=== PATIENT | female | born 1980 | race Caucasian/White ===

== ENCOUNTER 2019-08-22 11:00 | Inpatient (IN) | payer OTHER ==
[2019-08-22] MEDS ORDERED: ELECTROLYTE-148 SOLN 1,000 ML IV SCH (11:20)
[2019-08-22] MEDS ORDERED: CITRIC ACID/SODIUM CITRATE 30 ML UNIT-DOSE CUP PO ONE (11:20)
[2019-08-22 11:50] VITALS: BMI 27.9
[2019-08-22] MEDS: ELECTROLYTE-148 SOLN 1,000 ML IV SCH ×2 (11:50→22:27)
[2019-08-22] MEDS ORDERED: ELECTROLYTE-148 SOLN 500 ML IV ONE (14:26)
[2019-08-22] MEDS ORDERED: morphine SULFATE/PF 0.5 MG/ML (2cc Syringe - QUVA) ONE (14:27)
[2019-08-22] MEDS ORDERED: ePHEDrine SULFATE 50 MG/1 ML AMPULE ONE ×3 (14:28→15:23)
[2019-08-22] MEDS ORDERED: SUCCINYLCHOLINE CHLORIDE 200 MG/10 ML SYRINGE ONE (14:28)
--- NOTE | 2019-08-22 14:35 | HP ---
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: No: Alzheimer's, CVA, Dementia, Migraine, Multiple Sclerosis, Peripheral Neuropathy, Parkinson's, Seizure, Syncope, TIA, Vertigo, Other Cardiovascular: No: AFIB, Aneurysm, Aortic Insufficiency, Aortic Stenosis, CAD, CHF, Deep Vein Thrombosis, HTN, Hyperlipdemia, AK, Mitral Insufficiency, Mitral Stenosis, Murmur, Pulmonary Hypertension, Other Pulmonary: No: Asthma, Bronchitis, Cancer, COPD, O2 Dependent, Pneumonia, Previously Intubated, Pulmonary Embolus, Pulmonary Fibrosis, Sleep Apnea, Other Gastrointestinal: No: Ascites, Cancer, Constipation, Crohn's Disease, Diverticulitis, Diverticulosis, Esophageal Varices, Gastritis, GERD, GI Bleed, Hemorrhoids, Hiatal Hernia, Inflamatory Bowel Disease, Irritable Bowel Disease, Pancreatitis, Peptic Ulcer Disease, Ulcerative Colitis, Other Hepatobiliary: No: Cirrhosis, Cholelithiasis, Cholecystitis, Choledocholithiasis , Hepatitis A, Hepatitis B, Hepatitis C, Other Renal/: No: Renal Failure, Renal Inusuff, BPH, Cancer, Hematuria, Hemodialysis , Neurogenic Bladder, Renal Calculi, UTI, Other Reproductive: No: Ectopic , Endometriosis, Fibroids, PID, Polycystic Ovary Syndrome, Postmenopausal, Other ...: 5 ...Para: 3 ...Term: 3 ...: 0 ...Spon : 1 ...Induced : 0 ...Multiple Gestation: 0 ...EDC by Sono: 09/05/19 Heme/Onc: No: Anemia, B12 Deficiency, Bleeding Disorder, Cancer, Current Chemotherapy, Current Radiation Therapy, Hemochromatosis, Hypercoaguable State, Myeloproliferative Synd, Sickle Cell Disease, Sickle Cell Trait, Thrombocytopenia, Other Infectious Disease: No: AIDS, C-Diff, Herpes Zoster, HIV, MRSA, STD's, Tuberculosis, VREF, Other Psych: No: Addictions, Anxiety, Bipolar, Depression, Panic, Psychosis, Schizophrenia, Other Musculoskeletal: No: Bursitis, Chronic low back pain, Hemiparesis, Hemiplegia, Osteoarthritis, Paraplegia, Other Rheumatology: No: Fibromyalgia, Gout, Lupus, Rheumatoid Arthritis, Sarcoidosis, Vasculitis, Other ENT: No: Allergic Rhinitis, Sinusitis, Other Endocrine: No: Lonny's Disease, [place]'s Disease, Diabetes Insipidus, Diabetes Mellitus, Hyperparathyroidism, Hyperthyroidism, Hypothyroidism, Osteopenia, SIADH, Other Dermatology: No: Basal Cell, Cellulitis, Eczema, Melanoma, Psoriasis, Squamous Cell, Other - Past Surgical History Past Surgical History: Yes: Hx Myomectomy: No Hx Transabdominal Cerclage: No - Advance Directives Advance Directives: Yes: Living Will - Smoking History Smoking history: Never smoked Have you smoked in the past 12 months: No - Alcohol/Substance Use Hx Alcohol Use: No History of Substance Use: reports: None - Social History Usual Living Arrangement: Yes: Alone, With Spouse Do you think of yourself as: Straight/Heterosexual ADL: Independent History of Recent Travel: No Home Medications - Allergies Allergies/Adverse Reactions: Allergies Allergy/AdvReac Type Severity Reaction Status Date / Time azithromycin Allergy Intermediate Rash Verified 08/22/19 11:28 - Home Medications Home Medications: Ambulatory Orders Labetalol HCl [Normodyne -] 200 mg PO DAILY 08/22/19 Pnv No.95/Ferrous Fum/Folic AC [ Vitamin Tablet] 1 each PO DAILY Family Medical History Family History: Denies Review of Systems - Review of Systems Constitutional: reports: No Symptoms Eyes: reports: No Symptoms HENT: reports: No Symptoms Neck: reports: No Symptoms Cardiovascular: reports: No Symptoms Respiratory: reports: No Symptoms Gastrointestinal: reports: No Symptoms Genitourinary: reports: No Symptoms Breasts: reports: No Symptoms Reported Musculoskeletal: reports: No Symptoms Integumentary: reports: No Symptoms Neurological: reports: No Symptoms Endocrine: reports: No Symptoms Hematology/Lymphatic: reports: No Symptoms Psychiatric: reports: No Symptoms Physical Exam - Maternity Vital Signs: Vital Signs Temperature 98.1 F 08/22/19 11:00 Pulse Rate 79 08/22/19 11:00 Respiratory Rate 18 08/22/19 11:00 Blood Pressure 129/59 L 08/22/19 11:00 O2 Sat by Pulse Oximetry (%) Constitutional: Yes: Well Nourished, No Distress, Calm Eyes: Yes: WNL, Conjunctiva Clear, EOM Intact HENT: Yes: WNL, Atraumatic, Normocephalic Neck: Yes: WNL, Supple, Trachea Midline Cardiovascular: Yes: WNL, Regular Rate and Rhythm Lungs: Clear to auscultation Breast(s): Yes: WNL - Abdominal Exam/OB Fundal Height: 40 Number of Fetuses: Single Presentation: Vertex Contractions: Yes Regularity: Irregular Intensity: Mild Monitor Mode: External Heart Rate Location: [facility] Category: I Accelerations: Uniform Decelerations: None - Vaginal Exam/OB Vaginal Bleediing: No Speculum Exam: No Dilatation (cm): 1 Effacement (%): 20 Amniotic Membrane Status: Intact Presentation: Vertex/Position Station: -2 - Physical Exam Musculoskeletal: Yes: WNL Extremities: Yes: WNL Edema: Yes Edema: LUE: 1+, RUE: 1+, LLE: 1+, RLE: 1+ Integumentary: Yes: WNL Deep Tendon Reflex Grade: Normal +2 ...Motor Strength: WNL Psychiatric: Yes: WNL, Alert, Oriented Hemorrhage Risk Assessment - Risk Factors Medium Risk Factors: Yes: Prior , uterine surgery,or multiple laparotomies High Risk Factors: Yes: None Risk Score: 1 Risk Level: Medium Risk Assessment/Plan chronic htn for repeat lt c s
[2019-08-22] MEDS ORDERED: DEXAMETHASONE SOD PHOSPHATE 4 MG/1 ML VIAL ONE (15:12)
[2019-08-22] MEDS ORDERED: ceFAZolin SODIUM 1 GM VIAL ONE (15:12)
[2019-08-22] MEDS ORDERED: ONDANSETRON 4 MG/2 ML VIAL IVPUSH PRN (15:59)
[2019-08-22] MEDS: OXYTOCIN 20 UNITS in 0.9% NS 20 UNIT/1,000 ML INFUS.BAG IV SCH (16:20)
[2019-08-22] MEDS ORDERED: OXYTOCIN 20 UNITS in 0.9% NS 20 UNIT/1,000 ML INFUS.BAG IV ONE (16:23)
[2019-08-22] MEDS ORDERED: METHYLERGONOVINE MALEATE 0.2 MG/1 ML AMP IM PRN (16:48)
[2019-08-22] MEDS ORDERED: SENNOSIDES/DOCUSATE COMBO (SENNA PLUS) TABLET (UD) PO PRN (16:48)
[2019-08-22] MEDS ORDERED: IBUPROFEN 800 MG/8 ML IJ IVPB PRN (16:48)
[2019-08-22] MEDS ORDERED: oxyCODONE HCL 5 MG TABLET PO PRN (16:48)
--- NOTE | 2019-08-22 16:54 | OP ---
Operative Note - Note: Operative Date: 08/22/19 Pre-Operative Diagnosis: chronic htn for repeat lt c s Operation: repeat lt c s Post-Operative Diagnosis: Same as Pre-op Surgeon: Italo Pinto Trial Paralegal: Hernan Brown Anesthesiologist/WORKFORCE SPECIALIST: Juve Ochoa Anesthesia: Spinal Estimated Blood Loss (mls): 600 (no complications ) Operative Report Dictated: Yes
[2019-08-22] MEDS: LABETALOL HCL 100 MG TABLET (FP) PO SCH (22:35)
[2019-08-23] MEDS: OXYTOCIN 20 UNITS in 0.9% NS 20 UNIT/1,000 ML INFUS.BAG IV SCH (06:17)
[2019-08-23 08:33] LABS: BASO % 0.2 % (0-2.0); EOS % 0.2 % (0-4.5); HEMATOCRIT 27.3 % (32.4-45.2); HEMOGLOBIN 9.1 GM/dL (10.7-15.3); LYMPH % 13.4 % (8-40); MCH 27.5 pg (25.7-33.7); MCHC 33.2 g/dl (32.0-36.0); MEAN PLT VOLUME 8.7 fl (7.5-11.1); MONO % 7.5 % (3.8-10.2); NEUT % 78.7 % (42.8-82.8); PLATELET COUNT 202 K/MM3 (134-434); RBC 3.29 M/mm3 (3.60-5.2); RDW 15.8 % (11.6-15.6); WHITE BLOOD COUNT 13.5 K/mm3 (4.0-10.0)
--- NOTE | 2019-08-23 08:58 | PN ---
Progress Note (short form) - Note Progress Note: Anesthesia/pain Pt seen and examined S:Alert and awake comfortable O: Vital Signs Temperature 98.7 F 08/23/19 06:00 Pulse Rate 77 08/23/19 06:00 Respiratory Rate 18 08/23/19 08:00 Blood Pressure 122/53 L 08/23/19 06:00 O2 Sat by Pulse Oximetry (%) 98 08/22/19 17:05 CBC, BMP 08/23/19 07:53 A/P: s/p c section Doing well post op Continue current care Aneudy Santos MD
[2019-08-23] MEDS ORDERED: DIPHTH,PERTUSS(ACELL),TET 0.5 ML DISP.SYRIN IM ONE (10:00)
[2019-08-23] MEDS ORDERED: FLU VACC QS2019-20(6MOS UP)/PF 60 MCG/0.5 ML SYRINGE IM ONE (10:00)
[2019-08-23] MEDS ORDERED: FLU VACCINE QUAD 60 MCG/0.5 ML (MDV 19-20) IM ONE (10:00)
[2019-08-23] MEDS: LABETALOL HCL 100 MG TABLET (FP) PO SCH ×2 (10:19→22:14)
[2019-08-23] MEDS: ENOXAPARIN NA (PORCINE) 40 MG/0.4 ML DISP.SYRIN SQ SCH (10:20)
[2019-08-23] MEDS: ACETAMINOPHEN 325 MG TABLET (FP) PO PRN (16:10)
[2019-08-23] MEDS: SIMETHICONE 80 MG TAB.CHEW (FP) PO PRN ×2 (16:10→22:27)
[2019-08-23] MEDS: IBUPROFEN 600 MG TABLET (FP) PO PRN ×2 (16:11→23:11)
[2019-08-23] MEDS ORDERED: BISACODYL 10 MG SUPP.RECT RC PRN (16:48)
--- NOTE | 2019-08-23 21:30 | PN ---
Post Progress Note Post Day: 1 Type of Delivery: Repeat C/S Vital Signs: Vital Signs Temperature 98.2 F 08/23/19 18:00 Pulse Rate 77 08/23/19 18:00 Respiratory Rate 20 08/23/19 18:00 Blood Pressure 104/57 L 08/23/19 18:00 O2 Sat by Pulse Oximetry (%) 98 08/22/19 17:05 Breast Exam: Yes: Soft Uterus: Yes: Fundus Firm, Fundus below umbilicus Incision: Yes: Dressing dry and intact, Sutures intact Abdomen/GI: Yes: Abdomen soft, Passing flatus, Tolerating PO Lochia: Yes: Serosa Lochia, amount: Small Extremities: Yes: Calves non-tender Perineum: Yes: Intact Activity: Ambulating (bp well controlled, doing well ) - Labs Labs: CBC WBC 13.5 K/mm3 (4.0-10.0) H 08/23/19 07:53 RBC 3.29 M/mm3 (3.60-5.2) L 08/23/19 07:53 Hgb 9.1 GM/dL (10.7-15.3) L 08/23/19 07:53 Hct 27.3 % (32.4-45.2) L D 08/23/19 07:53 MCV 83.0 fl (80-96) 08/23/19 07:53 MCH 27.5 pg (25.7-33.7) 08/23/19 07:53 MCHC 33.2 g/dl (32.0-36.0) 08/23/19 07:53 RDW 15.8 % (11.6-15.6) H 08/23/19 07:53 Plt Count 202 K/MM3 (134-434) 08/23/19 07:53 MPV 8.7 fl (7.5-11.1) 08/23/19 07:53 Absolute Neuts (auto) 10.6 K/mm3 (1.5-8.0) H 08/23/19 07:53 Neutrophils % 78.7 % (42.8-82.8) 08/23/19 07:53 Lymphocytes % 13.4 % (8-40) 08/23/19 07:53 Monocytes % 7.5 % (3.8-10.2) 08/23/19 07:53 Eosinophils % 0.2 % (0-4.5) 08/23/19 07:53 Basophils % 0.2 % (0-2.0) 08/23/19 07:53 Nucleated RBC % 0 % (0-0) 08/23/19 07:53
[2019-08-23] MEDS: FERROUS SO4 325 MG TABLET (FP) PO SCH (22:26)
[2019-08-23] MEDS: guaiFENesin 200 MG/10 ML 10 ML UNIT-DOSE CUPS PO PRN (23:11)
[2019-08-23] MEDS: oxyCODONE HCL 5 MG TABLET PO PRN (23:12)
--- NOTE | 2019-08-24 00:59 | OP ---
DATE OF OPERATION: 08/22/2019 PREOPERATIVE DIAGNOSIS: Repeat low transverse section x3 and chronic high blood pressure. POSTOPERATIVE DIAGNOSIS: Repeat low transverse section x3 and chronic high blood pressure. PROCEDURE: Repeat low transverse section. SURGEON: Italo Liao MD [employer] TECHNICIAN: CARLOS Leblanc ANESTHESIA: Spinal by Dr. Ochoa. BLOOD LOSS: 600 mL. PATHOLOGY: Placenta. INDICATIONS: This is a 38-year-old female patient with previous history of 2 low transverse sections, currently 38 weeks. Because of chronic high blood pressure the patient is taken to the OR for repeat low transverse section. The patient was placed on the operating table in the supine position. After spinal anesthesia was obtained, the patient's abdomen and pelvis were prepped and draped and draped in the usual sterile manner. Pfannenstiel incision was made. Incision was made through the skin and subcutaneous tissue. The fascia was nicked in the midline. The fascia was extended bilaterally until the peritoneal cavity was entered. Bladder flap was created. Low transverse section was entered. Baby was delivered from the JOSE position. Baby was handed over to the county superintendent of schools after umbilical cord was doubly clamped and cut. Placenta was removed. Uterus was closed in layers, first layer interlocking Vicryl sutures with good hemostasis. Both gutters were cleaned. Both ovaries, fallopian tubes, and uterus were within normal limits. No complications. Patient tolerated the procedure well. Good hemostasis. Draining clear urine. Peritoneum was closed. Fascia was closed. Skin was closed. Transferred to recovery room in stable condition. ITALO LIAO MD [id number]
[2019-08-24] MEDS: IBUPROFEN 600 MG TABLET (FP) PO PRN ×2 (08:25→15:36)
[2019-08-24] MEDS: oxyCODONE HCL 5 MG TABLET PO PRN ×2 (08:25→21:37)
[2019-08-24] MEDS: FERROUS SO4 325 MG TABLET (FP) PO SCH ×2 (09:45→21:37)
[2019-08-24] MEDS: LABETALOL HCL 100 MG TABLET (FP) PO SCH ×2 (09:56→22:43)
[2019-08-24] MEDS: ENOXAPARIN NA (PORCINE) 40 MG/0.4 ML DISP.SYRIN SQ SCH (10:40)
[2019-08-24] MEDS: ELECTROLYTE-148 SOLN 1,000 ML IV SCH ×2 (12:55→12:56)
[2019-08-24] MEDS: OXYTOCIN 20 UNITS in 0.9% NS 20 UNIT/1,000 ML INFUS.BAG IV SCH (12:56)
[2019-08-24] MEDS: ACETAMINOPHEN 325 MG TABLET (FP) PO PRN ×2 (15:35→21:38)
[2019-08-24] MEDS: SIMETHICONE 80 MG TAB.CHEW (FP) PO PRN (21:37)
[2019-08-24] MEDS: guaiFENesin 200 MG/10 ML 10 ML UNIT-DOSE CUPS PO PRN (21:37)
--- NOTE | 2019-08-24 22:04 | PN ---
Post Progress Note Post Day: 2 Type of Delivery: Repeat C/S Vital Signs: Vital Signs Temperature 98.4 F 08/24/19 21:37 Pulse Rate 80 08/24/19 21:37 Respiratory Rate 18 08/24/19 21:37 Blood Pressure 115/77 08/24/19 21:37 O2 Sat by Pulse Oximetry (%) 98 08/22/19 17:05 Breast Exam: Yes: Soft Uterus: Yes: Fundus Firm Incision: Yes: Dressing dry and intact, Sutures intact Abdomen/GI: Yes: Abdomen soft, Passing flatus, Tolerating PO Lochia: Yes: Serosa Lochia, amount: Small Extremities: Yes: Calves non-tender Activity: Ambulating - Labs Labs: CBC WBC 13.5 K/mm3 (4.0-10.0) H 08/23/19 07:53 RBC 3.29 M/mm3 (3.60-5.2) L 08/23/19 07:53 Hgb 9.1 GM/dL (10.7-15.3) L 08/23/19 07:53 Hct 27.3 % (32.4-45.2) L D 08/23/19 07:53 MCV 83.0 fl (80-96) 08/23/19 07:53 MCH 27.5 pg (25.7-33.7) 08/23/19 07:53 MCHC 33.2 g/dl (32.0-36.0) 08/23/19 07:53 RDW 15.8 % (11.6-15.6) H 08/23/19 07:53 Plt Count 202 K/MM3 (134-434) 08/23/19 07:53 MPV 8.7 fl (7.5-11.1) 08/23/19 07:53 Absolute Neuts (auto) 10.6 K/mm3 (1.5-8.0) H 08/23/19 07:53 Neutrophils % 78.7 % (42.8-82.8) 08/23/19 07:53 Lymphocytes % 13.4 % (8-40) 08/23/19 07:53 Monocytes % 7.5 % (3.8-10.2) 08/23/19 07:53 Eosinophils % 0.2 % (0-4.5) 08/23/19 07:53 Basophils % 0.2 % (0-2.0) 08/23/19 07:53 Nucleated RBC % 0 % (0-0) 08/23/19 07:53 Assessment/Plan oob as much as possible
--- NOTE | 2019-08-25 07:36 | PN ---
Post Progress Note Post Day: 3 Type of Delivery: Repeat C/S Vital Signs: Vital Signs Temperature 97.9 F 08/25/19 02:00 Pulse Rate 81 08/25/19 02:00 Respiratory Rate 18 08/25/19 02:00 Blood Pressure 114/67 08/25/19 02:00 O2 Sat by Pulse Oximetry (%) 98 08/22/19 17:05 Breast Exam: Yes: Soft Uterus: Yes: Fundus Firm, Fundus below umbilicus, Non-tender Incision: Yes: Dressing dry and intact, Sutures intact Abdomen/GI: Yes: Abdomen soft, Passing flatus, Tolerating PO Lochia: Yes: Serosa Lochia, amount: Small Extremities: Yes: Calves non-tender Perineum: Yes: Intact Activity: Ambulating - Labs Labs: CBC WBC 13.5 K/mm3 (4.0-10.0) H 08/23/19 07:53 RBC 3.29 M/mm3 (3.60-5.2) L 08/23/19 07:53 Hgb 9.1 GM/dL (10.7-15.3) L 08/23/19 07:53 Hct 27.3 % (32.4-45.2) L D 08/23/19 07:53 MCV 83.0 fl (80-96) 08/23/19 07:53 MCH 27.5 pg (25.7-33.7) 08/23/19 07:53 MCHC 33.2 g/dl (32.0-36.0) 08/23/19 07:53 RDW 15.8 % (11.6-15.6) H 08/23/19 07:53 Plt Count 202 K/MM3 (134-434) 08/23/19 07:53 MPV 8.7 fl (7.5-11.1) 08/23/19 07:53 Absolute Neuts (auto) 10.6 K/mm3 (1.5-8.0) H 08/23/19 07:53 Neutrophils % 78.7 % (42.8-82.8) 08/23/19 07:53 Lymphocytes % 13.4 % (8-40) 08/23/19 07:53 Monocytes % 7.5 % (3.8-10.2) 08/23/19 07:53 Eosinophils % 0.2 % (0-4.5) 08/23/19 07:53 Basophils % 0.2 % (0-2.0) 08/23/19 07:53 Nucleated RBC % 0 % (0-0) 08/23/19 07:53 Assessment/Plan dc pt home tomorrow
--- NOTE | 2019-08-25 07:39 | DS ---
Physical Exam-VICE PRESIDENT QUALITY ASSURANCE Vital Signs: Vital Signs Temperature 97.9 F 08/25/19 02:00 Pulse Rate 81 08/25/19 02:00 Respiratory Rate 18 08/25/19 02:00 Blood Pressure 114/67 08/25/19 02:00 O2 Sat by Pulse Oximetry (%) 98 08/22/19 17:05 Constitutional: Yes: Well Nourished, No Distress, Calm Eyes: Yes: WNL, Conjunctiva Clear, EOM Intact HENT: Yes: WNL, Atraumatic, Normocephalic Neck: Yes: WNL, Supple, Trachea Midline Cardiovascular: Yes: WNL, Regular Rate and Rhythm Respiratory: Yes: WNL, Regular, CTA Bilaterally Gastrointestinal: Yes: WNL, Normal Bowel Sounds, Soft ...Rectal Exam: Yes: WNL Renal/: Yes: WNL Pelvis: Yes: WNL External Genitalia: Yes: Normal Internal Exam Deferred: Yes Vaginal Exam: Yes: Normal Cervix: Yes: Normal Uterus: Yes: Normal Adnexa: Normal: Bilateral ....Post : Yes: Uterus firm, Uterus non-tender Breast(s): Yes: WNL Musculoskeletal: Yes: WNL Extremities: Yes: WNL Edema: Yes Edema: LUE: 1+, RUE: 1+, LLE: 1+, RLE: 1+ Integumentary: Yes: WNL Wound/Incision: Yes: Clean/Dry, Well Approximated Neurological: Yes: WNL, Alert, Oriented ...Motor Strength: WNL Psychiatric: Yes: WNL, Alert, Oriented Labs: CBC, BMP 08/23/19 07:53 Delivery - Delivery Section: Repeat Type of Anesthesia: Spinal Episiotomy/Laceration: None EBL (cc): 500 Delivery, Single - Stages of Labor Time of Delivery: 15:28 Time Placenta Delivered: 15:29 - Condition of Infant Core Piler/Licensed Marine Engineer Present: Yes Name: Magdalena Abbott Infant Gender: Female Weight: 2.722 kg Position: Right, OA Total Hours ROM (Hrs/Mins): 2 min - 1 Minute Total Score: 9 5 Minutes Total Score: 9 - Feeding Plan Initial Plan: Elected not to breastfeed exclusively throughout hospitalization Discharge Summary Problems reviewed: Yes Reason For Visit: Procedures: Principal: repeat lt c s Other Procedures: none Hospital Course: uneventful Health Concerns: none Plan of Treatment: oob as much as possible Goals: return to work in 6 weeks Condition: Good - Instructions Diet, Activity, Other Instructions: Physical activity Resume your normal everyday activity as tolerated no heavy lifting or exercise until seen by your surgeon. You may walk unlimited estelita of and climb stairs. You may resume driving the car when you feel safe and comfortable behind the wheel. No sexual activity as instructed. Wound care If you have a bandage, leave it on, and keep dry for 48-72 hours. After that time discard the outer bandage. If they are tapes on the skin under the out of bandage leave them in place. They will peel off in the next 7 to 10 days. Do Not Peel them off. You may shower the day after surgery. If there are tapes present on the skin, you may shower over them. Diet There are no dietary restrictions. Eat healthy, high-fiber foods. Drink 6 to 8 glasses of liquid each day. This will assist in keeping your bowels are regular. Pain management You may take Tylenol or acetaminophen or Ibuprofen (for example, Motrin, Advil etc.) from my pain prescription medication is ordered should be taken as prescribed for moderate to severe pain. Call MD for any of the following:call dr silva for 2 weeks appoint. Severe pain not relieved by medication Fever of 101 or higher Excessive bleeding or drainage on dressing Inability to urinate Disposition: HOME - Home Medications Comprehensive Discharge Medication List: Ambulatory Orders Labetalol HCl [Normodyne -] 200 mg PO DAILY 08/22/19 Pnv No.95/Ferrous Fum/Folic AC [ Vitamin Tablet] 1 each PO DAILY 08/22/19 Prescription Drug Monitoring Program (I-STOP) results: I-STOP reviewed and no issues identified
[2019-08-25] MEDS: ENOXAPARIN NA (PORCINE) 40 MG/0.4 ML DISP.SYRIN SQ SCH (09:13)
[2019-08-25] MEDS: FERROUS SO4 325 MG TABLET (FP) PO SCH ×2 (09:13→23:07)
[2019-08-25] MEDS: LABETALOL HCL 100 MG TABLET (FP) PO SCH ×2 (11:55→22:04)
[2019-08-25] MEDS: SIMETHICONE 80 MG TAB.CHEW (FP) PO PRN ×2 (14:36→23:07)
[2019-08-25] MEDS: ELECTROLYTE-148 SOLN 1,000 ML IV SCH ×3 (14:51→14:57)
[2019-08-25] MEDS: OXYTOCIN 20 UNITS in 0.9% NS 20 UNIT/1,000 ML INFUS.BAG IV SCH (14:53)
[2019-08-25] MEDS: IBUPROFEN 600 MG TABLET (FP) PO PRN (23:07)
[2019-08-25] MEDS: ACETAMINOPHEN 325 MG TABLET (FP) PO PRN (23:08)
[2019-08-26] MEDS: LABETALOL HCL 100 MG TABLET (FP) PO SCH (11:36)
[2019-08-26] MEDS: ENOXAPARIN NA (PORCINE) 40 MG/0.4 ML DISP.SYRIN SQ SCH (11:36)
[2019-08-26] MEDS: FERROUS SO4 325 MG TABLET (FP) PO SCH (11:37)
[2019-08-26 12:18] VITALS: BP 135/85; PULSE 75; TEMP 97.2
--- NOTE | 2019-08-29 16:05 | PATH ---
Surgical Pathology Report Patient Name: RIKKI GALLARDO Med. Rec. #: [id number] /Age/Gender: 1980 (Age: 38) / F Account: [id number] Location: [facility] OBS/BMET Taken: 08/22/2019 Received: 08/23/2019 Reported: 08/29/2019 Physicians: Italo Pinto MD Specimen(s) Received PLACENTA Clinical History , 38 weeks' previous with chronic hypertension, advanced maternal age, chronic hypertension Final Diagnosis PLACENTA: THIRD TRIMESTER PLACENTA SHOWING FOCAL RETROPLACENTAL ORGANIZING FIBRIN WITH HEMOSIDERIN LADEN (IRON STAIN POSITIVE) MACROPHAGES. SEE COMMENT. TRIVASCULAR CORD. MEMBRANES WITH NO DIAGNOSTIC ABNORMALITIES. Comment: Finding may represent retroplacental old hemorrhage. Suggest clinical correlation. Electronically Signed Kodak Caldera M.D. Gross Description The specimen is received fresh labeled placenta and is a 349 gram, 15.5 x 15.0 x 3.0 cm. placenta with attached membranes and umbilical cord. The attached membranes are carlton, thick, cloudy and insert marginally. The umbilical cord measures 12 cm. in length and averages 1 cm. in diameter. The cord inserts eccentrically, 2.5 cm. to the nearest margin. No true knots or strictures are identified. Cut surface of the umbilical cord reveals 3 vessels. The surface is lee blue with moderate fibrin deposition and appropriate caliber vessels. The maternal surface is red-brown with focal defects. Sectioning reveals red-brown, spongy parenchyma. No lesions are identified. Vice President Of Manufacturing sections are submitted in three cassettes as follows: 1- membrane rolls and umbilical cord; 2-3- full thickness sections of placenta. /08/26/2019 [facility]/08/26/2019
== END 2019-08-26 12:40 | disposition home or self-care (01) | DRG 540 ==
LOC: JLDR 11:00 → J3W 18:30
PROVIDERS: ADMIT Obstetrics & Gynecology; ATTEND Obstetrics & Gynecology
PROC: 10D00Z1 Extraction of Products of Conception, Low, Open Approach (ICD-10-PCS; principal; 2019-08-22)
DX: O34.211 Maternal care for low transverse scar from previous cesarean delivery (principal); N85.8 Other specified noninflammatory disorders of uterus; O10.92 Unspecified pre-existing hypertension complicating childbirth; Z3A.38 38 weeks gestation of pregnancy; Z37.0 Single live birth
CPT/HCPCS: 36415; 85025; 88307-TC; 90686; 90715

== ENCOUNTER 2022-03-13 06:03 | Inpatient (IN) | payer OTHER ==
[2022-03-13 07:17] VITALS: BMI 40.7
[2022-03-13] MEDS ORDERED: ELECTROLYTE-148 SOLN 500 ML IV ONE (07:30)
[2022-03-13] MEDS ORDERED: CITRIC ACID/SODIUM CITRATE 30 ML UNIT-DOSE CUP PO ONE ×2 (07:30→08:15)
[2022-03-13] MEDS ORDERED: ELECTROLYTE-148 SOLN 500 ML IV SCH (07:30)
[2022-03-13] MEDS: ELECTROLYTE-148 SOLN 500 ML IV SCH (08:00)
[2022-03-13] MEDS ORDERED: morphine SULFATE/PF 1 MG/2 ML (2cc Syringe - QUVA) ONE (08:09)
[2022-03-13] MEDS ORDERED: ELECTROLYTE-148 SOLN 1,000 ML IV SCH (08:15)
[2022-03-13] MEDS ORDERED: morphine SULFATE/PF 1 MG/2 ML (2cc Syringe - QUVA) IT ONE (08:22)
[2022-03-13] MEDS: OXYTOCIN 20 UNITS in 0.9% NS 20 UNIT/1,000 ML INFUS.BAG IV SCH (08:47)
[2022-03-13] MEDS ORDERED: ONDANSETRON 4 MG/2 ML VIAL ONE (09:47)
[2022-03-13] MEDS ORDERED: ceFAZolin SODIUM 1 GM VIAL ONE (09:47)
[2022-03-13] MEDS ORDERED: DEXAMETHASONE SOD PHOSPHATE 4 MG/1 ML VIAL ONE (09:47)
[2022-03-13] MEDS ORDERED: OXYTOCIN 10 UNITS/ML VIAL ONE (09:47)
[2022-03-13] MEDS ORDERED: KETOROLAC TROMETHAMINE 30 MG/1 ML VIAL ONE (09:47)
[2022-03-13] MEDS ORDERED: IBUPROFEN 800 MG/8 ML IJ IVPB PRN ×2 (09:49→10:23)
[2022-03-13] MEDS ORDERED: IBUPROFEN 600 MG TABLET (FP) PO PRN (09:49)
[2022-03-13] MEDS ORDERED: ACETAMINOPHEN 325 MG TABLET (FP) PO PRN (09:49)
[2022-03-13] MEDS ORDERED: METHYLERGONOVINE MALEATE 0.2 MG/1 ML AMP IM PRN (09:49)
[2022-03-13] MEDS ORDERED: SENNOSIDES/DOCUSATE COMBO (SENNA PLUS) TABLET (UD) PO PRN (09:49)
[2022-03-13] MEDS ORDERED: guaiFENesin 200 MG/10 ML 10 ML UNIT-DOSE CUPS PO PRN (09:53)
[2022-03-13] MEDS ORDERED: ONDANSETRON 4 MG/2 ML VIAL IVPUSH PRN (09:55)
[2022-03-13] MEDS ORDERED: ACETAMINOPHEN 1000 MG/100 ML BAG IVPB ONE (09:57)
[2022-03-13] MEDS: PRENATAL VITAMINS W/ FOLIC ACID TABLET (FP) PO SCH (10:00)
[2022-03-13] MEDS ORDERED: oxyCODONE HCL 5 MG TABLET PO PRN (21:49)
[2022-03-14] MEDS: SIMETHICONE 80 MG TAB.CHEW (FP) PO PRN ×2 (02:34→20:47)
[2022-03-14] MEDS: PRENATAL VITAMINS W/ FOLIC ACID TABLET (FP) PO SCH (09:14)
[2022-03-14 09:15] LABS: BASO % 0.5 % (0-2.0); EOS % 1.2 % (0-4.5); HEMATOCRIT 33.3 % (32.4-45.2); LYMPH % 16.1 % (8-40); MEAN PLT VOLUME 9.4 fl (7.5-11.1); MONO % 9.4 % (3.8-10.2); NEUT % 72.8 % (42.8-82.8); PLATELET COUNT 223 10^3/uL (134-434); RBC 3.91 M/mm3 (3.60-5.2); RDW 15.3 % (11.6-15.6); WHITE BLOOD COUNT 10.7 K/mm3 (4.0-10.0)
[2022-03-14] MEDS ORDERED: BISACODYL 10 MG SUPP.RECT RC PRN (09:49)
[2022-03-14] MEDS: ELECTROLYTE-148 SOLN 500 ML IV SCH (20:27)
[2022-03-14] MEDS: OXYTOCIN 20 UNITS in 0.9% NS 20 UNIT/1,000 ML INFUS.BAG IV SCH (20:27)
[2022-03-14] MEDS: oxyCODONE HCL 5 MG TABLET PO PRN (20:47)
[2022-03-15] MEDS: oxyCODONE HCL 5 MG TABLET PO PRN (00:36)
[2022-03-15] MEDS: SIMETHICONE 80 MG TAB.CHEW (FP) PO PRN ×2 (00:36→08:12)
[2022-03-15 00:58] VITALS: RESP 18
[2022-03-15 09:42] VITALS: BP 145/83; PULSE 69; TEMP 98.4
== END 2022-03-15 09:30 | disposition home or self-care (01) | DRG 540 ==
LOC: JLDR 06:03 → J3W 15:10
PROVIDERS: ADMIT Obstetrics & Gynecology; ATTEND Obstetrics & Gynecology
PROC: 10D00Z1 Extraction of Products of Conception, Low, Open Approach (ICD-10-PCS; principal; 2022-03-13)
PROC: 0UL70ZZ Occlusion of Bilateral Fallopian Tubes, Open Approach (ICD-10-PCS; 2022-03-13)
PROC: 0DNW0ZZ Release Peritoneum, Open Approach (ICD-10-PCS; 2022-03-13)
DX: O10.92 Unspecified pre-existing hypertension complicating childbirth (principal); O32.2XX0 Maternal care for transverse and oblique lie, not applicable or unspecified; O99.214 Obesity complicating childbirth; E66.01 Morbid (severe) obesity due to excess calories; N73.6 Female pelvic peritoneal adhesions (postinfective); O34.211 Maternal care for low transverse scar from previous cesarean delivery; Z3A.38 38 weeks gestation of pregnancy; Z37.0 Single live birth; Z30.2 Encounter for sterilization
CPT/HCPCS: 36415; 85025; 88305-TC; 88307-TC